=== PATIENT | male | born 1950 | race Caucasian/White ===

== ENCOUNTER 2021-10-10 15:18 | Outpatient (REF) | payer BC, SELFPAY ==
--- NOTE | 2021-10-10 14:30 | SKI_PTH ---
PATIENT: Jc Pierce LOC: [facility] U#:[id number] AGE/SX: 71/M ROOM: RE10/10/[address]: David Ratliff MD : 1950 BED: DIS: 10/10/2021 SPEC #: [id number] RECD: 10/10/21 18:35 STATUS: UBALDO CANTOR #: [id number] YAHAIRA: 10/10/21 14:[address]: David Ratliff DEPT: Surgical Specimen RECD BY: Joselyn Mckeon ENTERED: 10/10/21 18:36 SP TYPE: MEENAKSHI CALHOUN DR: Giancarlo De La Paz Tissues: 1 - SKIN BIOPSY(SHAVE/PUNCH) Procedures: GROSS AND MICRO LEVEL 4 IMMUNOPEROXIDASE STAIN SPECIAL STAIN 1 Comments: [id number]
== END 2021-10-10 15:19 | disposition home or self-care (01) ==
LOC: LBN 15:18
PROVIDERS: PCP Family Medicine; Visit Provider Otolaryngology
DX: J32.9 Chronic sinusitis, unspecified (principal)
CPT/HCPCS: 88305; 88312; 88361

== ENCOUNTER 2022-02-10 01:46 | Outpatient (CLI) | payer BC, SELFPAY ==
[2022-02-10] MEDS: Methacholine 100 MG VIAL IH (17:29)
[2022-02-10] MEDS: Inhaler, Assist Device 1 EACH MC (17:29)
[2022-02-10] MEDS: Albuterol HFA 18 GM 200 PUFF INH IH (17:29)
--- NOTE | 2022-02-21 09:17 | PFT_ITS ---
Date of service: 02/10/22 Time of Service: 15:05 Pulmonary Function Test Result Requesting Provider [place] Indications: DANIELS Interpretation Spirometry: There is no airflow limitation. There is a reduced FVC. There is no significant bronchodilator response. Lung Volumes: Normal lung volumes Diffusion Capacity: Normal diffusion Airway Pressure: Normal resistance Impression Normal pulmonary function testing. The decreased FVC is likely pseudo- restriction from obesity. Clinical Correlation therefore is recommended.
--- NOTE | 2022-02-22 07:03 | W.PFT ---
Date of service: 02/10/22 Time of Service: 15:05 Pulmonary Function Test Result Requesting Provider Jennifer Indications: Dyspnea Interpretation Spirometry: There is a 6% decreased in FEV1% with administration of 16mg/mL methacholine. Impression Negative methacholine challenge Clinical Correlation therefore is recommended.
== END 2022-02-10 01:47 | disposition home or self-care (01) ==
LOC: RT 01:46
PROVIDERS: PCP Family Medicine; Visit Provider Student in an Organized Health Care Education/Training Program
DX: R06.09 Other forms of dyspnea (principal)
CPT/HCPCS: 94060; 94070; 94726; 94729; 94010; J7674

== ENCOUNTER 2022-09-11 14:48 | Outpatient (REF) | payer BC, SELFPAY ==
[2022-09-11 13:54] LABS: Abs Immature Grans 0.01 10^3/uL (0.0-0.06); Absolute Basophil Count 0.04 10^3/uL (0.0-0.2); Absolute Eosinophil Count 0.34 10^3/uL (0.0-0.7); Absolute Lymphocyte Count 1.93 10^3/uL (1.2-3.4); Absolute Monocyte Count 0.69 10^3/uL (0.1-0.8); Absolute Neutrophil Count 1.73 10^3/uL (1.2-6.7); Basophils % 0.8; Eosinophils % 7.2; HCT 38.6 % (40.0-50.0); Immature Grans % 0.2; Lymphocytes % 40.7; MCHC 33.7 % (32.0-36.0); MCV 92 fL (80-95); MPV 9.8 fL (8.0-11.0); Monocytes % 14.6; Neutrophils % 36.5; Platelet Count 248 10^3/uL (130-400); RDW-SD 54.4 fL; WBC 4.74 10^3/uL (4.4-10.8)
[2022-09-11 14:28] LABS: ALT 33 U/L (16-63); AST 15 U/L (15-37); Albumin 3.5 g/dL (3.4-5.0); Alkaline Phosphatase 76 U/L (46-116); Anion Gap 9.6 mmol/L (3-11); BUN 14 mg/dL (7-18); Bilirubin, Total 0.5 mg/dL (0.2-1.0); CO2 26.4 mmol/L (21.0-32.0); CREATININE 0.9 mg/dL (0.70-1.30); Calcium 8.8 mg/dL (8.5-10.1); Chloride 103 mmol/L (98-107); Estimated GFR 91.88 (mL/min/1.73m2); FREE T4 1.04 ng/dL (0.76-1.46); Glucose 92 mg/dL (74-106); Potassium 4.1 mmol/L (3.5-5.1); Sodium 139 mmol/L (136-145); Total Protein 7.4 g/dL (6.4-8.2); Vitamin B12 344 pg/mL (193-986)
[2022-09-11 14:43] LABS: Vitamin D 25 Total 24.7 ng/mL (30-100)
[2022-09-11 14:47] LABS: NT-proBNP 212 pg/mL (<300)
== END 2022-09-11 14:49 | disposition home or self-care (01) ==
LOC: LBN 14:48
PROVIDERS: PCP Family Medicine; Visit Provider Physician Assistant Surgical
DX: R06.00 Dyspnea, unspecified (principal)
CPT/HCPCS: 80053; 82306; 82607; 83880; 84439; 84443; 85025

== ENCOUNTER 2022-10-12 18:37 | Outpatient (REF) | payer BC, SELFPAY ==
[2022-10-12 22:27] LABS: Rheumatoid Factor <8.6 IU/mL (<12.0)
[2022-10-13 09:01] LABS: Cyclic Citrullinated Peptide <2.5 U/mL (<5.0)
[2022-10-13 14:17] LABS: ANA Interpretation Negative (Negative)
[2022-10-15 12:57] LABS: Fungitell Qualitative Negative (Negative); Fungitell Quantitative Value <31 pg/mL (<60 pg/mL)
[2022-10-15 15:58] LABS: Blastomyces Ag Result Not Detected; Blastomyces Ag Value Not Detected
== END 2022-10-12 18:38 | disposition home or self-care (01) ==
LOC: LBN 18:37
PROVIDERS: PCP Family Medicine; Visit Provider Student in an Organized Health Care Education/Training Program
DX: R91.8 Other nonspecific abnormal finding of lung field (principal); J68.3 Other acute and subacute respiratory conditions due to chemicals, gases, fumes and vapors; G47.33 Obstructive sleep apnea (adult) (pediatric); J45.909 Unspecified asthma, uncomplicated
CPT/HCPCS: 86200; 87449; 86038; 86431; 87385

== ENCOUNTER 2022-10-16 05:54 | Day surgery (SDC) | payer BC, SELFPAY ==
[2022-10-16] VITALS (9 sets, daily range): BP systolic 110–134; BP diastolic 45–70; PULSE 53–56; RESP 1–22; TEMP 36.2–36.6; O2SAT 90–95; BMI 44.4
[2022-10-16] MEDS: Lactated Ringers 1,000 ML 80 ML IV (07:10)
--- NOTE | 2022-10-16 07:22 | W.ANESPRE ---
General Info Date of Service Date Performed: 10/16/22 Height: 5 ft 7 in Weight: 128.508 kg Body Mass Index (BMI): 44.4 Surgical Procedure: Operation Date: 10/16/22 07:40 Proposed Procedure Side Surgeon p flexible Bronchoscopy w/BAL Lorie Rodriguez MD Actual Procedure Side Surgeon p Flexible Bronchoscopy w/BAL Not Applicable Lorie Rodriguez MD Pre-Op Diagnosis Post-Op Diagnosis Non-resolving pulmonary infiltrates + dyspnea Non-resolving pulmonary infiltrates + dyspnea Meds Allergies and Home Medications Allergies Allergy/AdvReac Type Severity Reaction Status Date / Time enalapril Allergy Verified 10/16/22 06:23 Penicillins Allergy Verified 10/16/22 06:23 Home Medication Medication Instructions Recorded ProAir HFA 90 mcg/actuation 2 puff inhalation Q4H PRN 07/27/14 aerosol inhaler (albuterol sulfate) Wellbutrin XL 150 mg 24 hr tablet, 150 mg PO DAILY 07/27/14 extended release (bupropion HCl) Wellbutrin XL 300 mg 24 hr tablet, 300 mg PO DAILY 07/27/14 extended release (bupropion HCl) lovastatin 40 mg tablet 40 mg PO DAILY 07/27/14 montelukast 10 mg tablet 10 mg PO DAILY 07/27/14 amlodipine 5 mg tablet 10 mg PO DAILY 04/16/15 acetaminophen 650 mg 650 mg PO Q8H PRN 11/10/20 tablet,extended release eplerenone 50 mg tablet 50 mg PO BID 11/10/20 fluticasone propionate 230 2 puff inhalation BID 11/10/20 mcg-salmeterol 21 mcg/actuation HFA inhaler (Advair HFA) gabapentin 800 mg tablet 800 mg PO QHS 11/10/20 losartan 100 mg tablet 100 mg PO DAILY 11/10/20 adalimumab 40 mg/0.8 mL See Rx Instructions subcut .COMPLEX 11/16/20 subcutaneous pen kit (Humira Pen) aspirin 325 mg tablet 325 mg PO DAILY 11/16/20 pantoprazole 40 mg tablet,delayed 40 mg PO DAILY 08/23/21 release tamsulosin 0.4 mg capsule 0.4 mg PO DAILY 08/23/21 clonidine 0.3 mg/24 hr weekly 1 patch transdermal QWEEK 09/05/21 transdermal patch Daily Vitamin (multivitamin) 1 tab PO DAILY 01/31/22 Flonase Allergy Relief 50 2 spray NS DIRECTED PRN 01/31/22 mcg/actuation nasal spray,suspension (fluticasone propionate) ascorbic acid (vitamin C) 1,000 mg 1,000 mg PO QAM 01/31/22 tablet calcium carbonate 600 mg calcium 600 mg PO DAILY 01/31/22 (1,500 mg) tablet (Calcium) furosemide 20 mg PO BID 01/31/22 garlic 1,000 mg PO DAILY 01/31/22 magnesium hydroxide 400 mg (170 mg 400 mg PO DAILY 01/31/22 magnesium) chewable tablet minoxidil 10 mg tablet 40 mg PO DAILY 01/31/22 potassium chloride 20 mEq 40 meq PO DAILY 01/31/22 tablet,extended release(part/cryst) loratadine 10 mg tablet (Allergy 10 mg PO DAILY 08/03/22 Relief (loratadine)) albuterol sulfate 1.25 mg/3 mL 1.25 mg (3 mL) inhalation QID PRN 10/02/22 solution for nebulization shortness of breath or wheezing #90 mL Current Visit Medications: Current Medications Generic Name Dose Route Start Last Admin Trade Name Freq PRN Reason Stop Dose Admin Albuterol/Ipratropium 3 ml 10/16/22 06:54 Albuterol/Ipratropium 3 Ml Upd Vial UPD 11/15/22 06:53 Q2H PRN PRN Ringer's Solution 1,000 mls @ 80 mls/hr 10/16/22 06:00 10/16/22 07:10 IV 10/16/22 23:59 80 mls/hr INFUSION SERA Administration IV Miscellaneous Supplies 1 each 10/16/22 06:00 Iv Access IV 10/16/22 23:59 DIRECTED SERA Sodium Chloride 0 ml 10/16/22 06:00 Normal Saline Flush 10 Ml Syr IV 10/16/22 23:59 PRN PRN Sodium Chloride 0 ml 10/16/22 06:00 Normal Saline 10 Ml Vial IJ 10/16/22 23:59 DIRECTED PRN Sterile Water 0 ml 10/16/22 06:00 Water,Injection,Sterile 10 Ml Vial IJ 10/16/22 23:59 DIRECTED PRN PFSH Active Problems Active Problems: Problem Status Onset Code Hypertension I10 Crohn's disease K50.90 Nasal polyps J33.9 Spinal stenosis M48.00 Pneumonia J18.9 Eustachian tube dysfunction H69.80 Mononucleosis B27.90 Hemorrhoids K64.9 Rosacea L71.9 Warts B07.9 CTS (carpal tunnel syndrome) G56.00 Diverticulitis K57.92 C. difficile colitis A04.72 Obstructive sleep apnea G47.33 Tinnitus H93.19 Hx of epistaxis Z87.898 History of arthroplasty of both shoulders Z98.890 Hx of umbilical hernia repair Z98.890, Z87.19 Hx of vasectomy Z98.52 Hx of total knee replacement Z96.659 Hx of foot surgery Z98.890 Hx of colonoscopy Z98.890 History of partial colectomy Z90.49 Hx of spinal surgery Z98.890 Hx of sinus surgery Z98.890 History of hip replacement Z96.649 History of nasal polyp Z87.09 Urinary urgency R39.15 Restless legs syndrome G25.[address] of chest R93.89 Visual changes H53.9 Wrist pain M25.539 Dyspnea R06.00 Ventricular bigeminy I49.8 Varicose veins of lower extremity I83.90 Macrocytosis D75.89 Knee pain M25.569 Hip pain M25.559 Essential hypertension I10 Edema R60.9 Fatigue R53.83 Obesity E66.9 Nasal vestibulitis J34.89 Nasal septum ulceration J34.0 Abnormal chest x-ray R93.89 Pulmonary infiltrates R91.8 Reactive airways dysfunction syndrome J68.3 Medical History Medical History Adjustment disorder with depressed mood Asthma COVID-19 vaccine administered #1 06/05/2020, #2 07/03/2020 Essential hypertension Hx of fracture of foot Metal plate in situ Hyperlipidemia Psoriasis Surgical History Surgical History Repair of umbilical hernia laparoscopic with Mesh Replacement of total knee joint right shoulder replacement Bilateral, left Vasectomy Tobacco Smoking/Tobacco Use Status: Former Tobacco Use Alcohol Alcohol Intake: current Alcohol intake frequency: 0-2 drinks per day Alcohol type: beer Substance Use Substance use: Never Substance use type: does not use Details: alcohol: t-1: some beers Vital Signs and Lab Results Vital Signs Most Recent Vital Signs in EMR: Most Recent Vital Signs Temp Pulse Resp BP Pulse Ox 36.6 C 55 L 18 134/67 95 10/16/22 06:40 10/16/22 06:40 10/16/22 06:40 10/16/22 06:40 10/16/22 06:40 Lab Results Blood Type / Crossmatch: No Data to Display Complete Blood Count: No Data to Display Complete Metabolic Panel: No Data to Display Liver Function Panel: No Data to Display Coagulation Panel: No Data to Display Cardiac Panel: No Data to Display Arterial Blood Gas: No Data to Display Venous Blood Gas: No Data to Display Pancreas Panel: No Data to Display Thyroid Panel: No Data to Display Infectious Disease: No Data to Display Blood Cultures: No Data to Display Toxicology Panel: No Data to Display Anesthesia Assessment and Plan Anesthesia History Personal History: No History of Anesthesia Complications Family History: No Family History of Anesthesia Complications Exercise Tolerance Exercise Tolerance: Metabolic Equivalents<4 Pertinent Negatives Pertinent Negatives: No Symptoms of GERD Cardiac & Pulmonary Exam Cardiac Exam: Normal S1/S2 Heart Sounds Pulmonary Exam: Clear Bilateral Breath Sounds Implantable Cardiac Device Does patient have a Pacemaker or an ICD?: No Airway Exam Known Difficult Airway: No Mallampati Class: 2 Mouth Opening: Normal (> 3cm) Thyromental Distance: Greater than 3 cm Neck Range of Motion: Full ROM Neck Circumference: Normal Teeth Condition: Normal Dentition ASA Classification ASA Score: ASA 2 Emergency Case?: No NPO Status NPO Status: NPO Clears >2 hours, Solids >8 hours Anesthesia Plan Resuscitation Status: Full Code Anesthesia Technique: General Anesthesia Airway Planned: Endotracheal Tube Monitors Used: Standard Monitors
[2022-10-16] MEDS: Lidocaine 1% Pres-Free 5 ML VIAL (08:00)
--- NOTE | 2022-10-16 08:10 | PAPNONF_PTH ---
PATIENT: Jc Pierce LOC: [facility] U#:[id number] AGE/SX: 72/M ROOM: RE10/16/[address]: Lorie Rodriguez MD : 1950 BED: DIS: 10/16/2022 SPEC #: [id number] RECD: 10/16/22 12:47 STATUS: UBALDO REQ #: [id number] YAHAIRA: 10/16/22 08:[address]: Lorie Rodriguez DEPT: [facility] [place] Cytology RECD BY: Joselyn Mckeon ENTERED: 10/16/22 12:48 SP TYPE: PAPWAI CALHOUN DR: Giancarlo De La Paz Tissues: 1 - BODY FLUID CYTO(NOT S/U/N/EM)[facility] Procedures: BODY FLUID CYTO(NOT SPU/UR/NIP/ENDOM)[facility] SPECIAL STAIN 1 Comments: [id number] (TV = 30 ml, SENT FRESH) (REFRIGERATED)
--- NOTE | 2022-10-16 08:52 | W.ANESPOSTOP ---
Postoperative Evaluation Date, Time and Location Date Performed: 10/16/22 Time Performed: 08:52 Patient Location: PACU Vital Signs Most Recent Imported Vital Signs: Most Recent Vital Signs Temp Pulse Resp BP Pulse Ox 36.6 C 55 L 22 116/51 L 95 10/16/22 08:48 10/16/22 08:48 10/16/22 08:48 10/16/22 08:48 10/16/22 08:48 Pain Score Most Recent Pain Score: Most Recent Pain Score Pain Level 0 10/16/22 08:48 Assessment Mental Status: Awake (Alert & Oriented to Patient Baseline) Airway and Respiratory Function: Patent airway with normal (patient baseline) respiratory exam Cardiovascular Function: Hemodynamically Stable Hydration Status: Adequately Hydrated Nausea & Vomiting: No Nausea or Vomiting Pain: Pt. Denies Any Pain Peripheral Nerve Block: Patient did not receive a nerve block
--- NOTE | 2022-10-16 08:55 | W.PM.OP ---
Date of service: 10/16/22 Time of Service: 07:50 Operative Note Operative Note PRE-OP DIAGNOSIS: Abnormal chest CT Refer to Anesthesia Record Findings: Procedure Description: Bronchoscopy Indication:Abnormal chest CT Procedure performed: Flexible bronchoscopy with BAL Sedation plan: General anesthesia Informed consent was obtained after the risks and benefits or the procedure were discussed. A proper and complete OR compliant time out was performed. The therapeutic 6.2mm Olympus bronchoscope was inserted into the airways, where 3cc in total of 1% topical lidocaine was used the anesthetize the airways. The trachea was midline and without lesion or injury. The mucosa appeared normal and there were no signs of tracheomalacia. The bella was sharp. All bronchial subsegments were visualized within each lobe and showed normal appearing mucosa with no secretions. The right middle lobes did have irritation with minimal blood present. A bronchoalveolar lavage was performed in the RML. A total of 180cc of saline was administered with a return of 75cc. The fluid was pink with visible cellularity.Given the pink appearance a total of 3 subsequent alloquotes were performed. The second alloquote was more bloody than the first but the third alloquote was no bloodied than the second (see picture above). Negative for diffuse alveolar hemorrhage. The bronchoscope was then removed and the case terminated. The patient was taken to PACU in stable condition. Samples collected:RML BAL, bronchial washings Testing ordered:cell diff, viral panel, cytopathology with silver stain, bacterial, fungal, AFB stain and cultures. Complications:None Lorie Rodriguez MD Pulmonary & Critical Care Medicine
[2022-10-16] MEDS: Albuterol/Ipratropium 3 ML UPD VIAL UPD (09:30)
[2022-10-18 08:01] LABS: Gram Smear Result Neutrophils Present
[2022-10-18 09:06] LABS: Lymphocytes Fluid Relative 61 %; Mono/Macrophage Fluid Relative 37 %; Neutrophils Fluid Relative 1 %
[2022-10-18 09:07] LABS: Eosinophils Fluid Relative 1 %
[2022-10-18 13:37] LABS: Adenovirus DNA Result Negative (Negative); Metapneumovirus RNA Result Negative (Negative); Parainfluenza Type1 RNA Result Negative (Negative); Parainfluenza Type2 RNA Result Negative (Negative); Parainfluenza Type3 RNA Result Negative (Negative); Parainfluenza Type4 RNA Result Negative (Negative); Rhinovirus RNA Result Negative (Negative)
[2022-11-14 15:03] LABS: Fungus Smear No Fungi Seen
[2022-11-14 15:05] LABS: Fungus Smear No Fungi Seen
== END 2022-10-16 09:52 | disposition home or self-care (01) ==
PROVIDERS: PCP Family Medicine; Visit Provider Student in an Organized Health Care Education/Training Program
PROC: 0BJ08ZZ Inspection of Tracheobronchial Tree, Via Natural or Artificial Opening Endoscopic (ICD-10-PCS; CPT 31622; principal; 2022-10-16 07:30)
DX: R91.8 Other nonspecific abnormal finding of lung field (principal); J45.909 Unspecified asthma, uncomplicated; G47.33 Obstructive sleep apnea (adult) (pediatric); Z79.899 Other long term (current) drug therapy
CPT/HCPCS: 31624; 80162; 87070; 87102; 87107; 87116; 87205; 87206; 87632; 88104; 88312; 94640; J1100; J1885; J2001; J2405; J2704; J7620

== ENCOUNTER 2022-12-04 09:39 | Day surgery (SDC) | payer BC, SELFPAY ==
[2022-12-04] VITALS (9 sets, daily range): BP systolic 123–135; BP diastolic 61–78; PULSE 66–84; RESP 18–21; TEMP 36.3–37.1; O2SAT 93–97; BMI 43.4
[2022-12-04] MEDS: Lactated Ringers 1,000 ML 80 ML IV (10:51)
--- NOTE | 2022-12-04 11:05 | W.ANESPRE ---
General Info Date of Service Date Performed: 12/04/22 Height: 5 ft 7 in Weight: 125.8 kg Body Mass Index (BMI): 43.4 Surgical Procedure: Operation Date: 12/04/22 11:40 Proposed Procedure Side Surgeon p Bronchoscopy w/BAL, Transbronchial Biopsies Lorie Rodriguez MD Actual Procedure Side Surgeon p Bronchoscopy w/BAL, Transbronchial Biopsies Lorie Rodriguez MD Meds Allergies and Home Medications Allergies Allergy/AdvReac Type Severity Reaction Status Date / Time enalapril Allergy Anaphylaxis Verified 12/04/22 10:10 Penicillins Allergy unknown Verified 12/04/22 10:10 Home Medication Medication Instructions Recorded ProAir HFA 90 mcg/actuation 2 puff inhalation Q4H PRN 07/27/14 aerosol inhaler (albuterol sulfate) Wellbutrin XL 150 mg 24 hr tablet, 150 mg PO DAILY 07/27/14 extended release (bupropion HCl) Wellbutrin XL 300 mg 24 hr tablet, 300 mg PO DAILY 07/27/14 extended release (bupropion HCl) lovastatin 40 mg tablet 40 mg PO DAILY 07/27/14 montelukast 10 mg tablet 10 mg PO DAILY 07/27/14 amlodipine 5 mg tablet 10 mg PO DAILY 04/16/15 acetaminophen 650 mg 650 mg PO Q8H PRN 11/10/20 tablet,extended release eplerenone 50 mg tablet 50 mg PO BID 11/10/20 fluticasone propionate 230 2 puff inhalation BID 11/10/20 mcg-salmeterol 21 mcg/actuation HFA inhaler (Advair HFA) gabapentin 800 mg tablet 800 mg PO QHS 11/10/20 losartan 100 mg tablet 100 mg PO DAILY 11/10/20 adalimumab 40 mg/0.8 mL See Rx Instructions subcut .COMPLEX 11/16/20 subcutaneous pen kit (Humira Pen) aspirin 325 mg tablet 325 mg PO DAILY 11/16/20 pantoprazole 40 mg tablet,delayed 40 mg PO DAILY 08/23/21 release tamsulosin 0.4 mg capsule 0.4 mg PO DAILY 08/23/21 clonidine 0.3 mg/24 hr weekly 1 patch transdermal QWEEK 09/05/21 transdermal patch Daily Vitamin (multivitamin) 1 tab PO DAILY 01/31/22 Flonase Allergy Relief 50 2 spray NS DIRECTED PRN 01/31/22 mcg/actuation nasal spray,suspension (fluticasone propionate) ascorbic acid (vitamin C) 1,000 mg 1,000 mg PO QAM 01/31/22 tablet calcium carbonate 600 mg calcium 600 mg PO DAILY 01/31/22 (1,500 mg) tablet (Calcium) furosemide 20 mg PO BID 01/31/22 garlic 1,000 mg PO DAILY 01/31/22 magnesium hydroxide 400 mg (170 mg 400 mg PO DAILY 01/31/22 magnesium) chewable tablet minoxidil 10 mg tablet 40 mg PO DAILY 01/31/22 potassium chloride 20 mEq 40 meq PO DAILY 01/31/22 tablet,extended release(part/cryst) loratadine 10 mg tablet (Allergy 10 mg PO DAILY 08/03/22 Relief (loratadine)) albuterol sulfate 1.25 mg/3 mL 1.25 mg (3 mL) inhalation QID PRN 10/02/22 solution for nebulization shortness of breath or wheezing #90 mL sulfamethoxazole 800 1 tab PO DAILY #60 tabs 10/20/22 mg-trimethoprim 160 mg tablet (Bactrim DS) Current Visit Medications: Current Medications Generic Name Dose Route Start Last Admin Trade Name Freq PRN Reason Stop Dose Admin Ringer's Solution 1,000 mls @ 80 mls/hr 12/04/22 06:00 12/04/22 10:51 IV 12/31/22 23:59 80 mls/hr INFUSION SERA Administration IV Miscellaneous Supplies 1 each 12/04/22 06:00 Iv Access IV 12/31/22 23:59 DIRECTED SERA Sodium Chloride 0 ml 12/04/22 06:00 Normal Saline Flush 10 Ml Syr IV 12/31/22 23:59 PRN PRN Sodium Chloride 0 ml 12/04/22 06:00 Normal Saline 10 Ml Vial IJ 12/31/22 23:59 DIRECTED PRN Sterile Water 0 ml 12/04/22 06:00 Water,Injection,Sterile 10 Ml Vial IJ 12/31/22 23:59 DIRECTED PRN PFSH Active Problems Active Problems: Problem Status Onset Code Hypertension I10 Crohn's disease K50.90 Nasal polyps J33.9 Spinal stenosis M48.00 Pneumonia J18.9 Eustachian tube dysfunction H69.80 Mononucleosis B27.90 Hemorrhoids K64.9 Rosacea L71.9 Warts B07.9 CTS (carpal tunnel syndrome) G56.00 Diverticulitis K57.92 C. difficile colitis A04.72 Obstructive sleep apnea G47.33 Tinnitus H93.19 Hx of epistaxis Z87.898 History of arthroplasty of both shoulders Z98.890 Hx of umbilical hernia repair Z98.890, Z87.19 Hx of vasectomy Z98.52 Hx of total knee replacement Z96.659 Hx of foot surgery Z98.890 Hx of colonoscopy Z98.890 History of partial colectomy Z90.49 Hx of spinal surgery Z98.890 Hx of sinus surgery Z98.890 History of hip replacement Z96.649 History of nasal polyp Z87.09 Urinary urgency R39.15 Restless legs syndrome G25.[address] of chest R93.89 Visual changes H53.9 Wrist pain M25.539 Dyspnea R06.00 Ventricular bigeminy I49.8 Varicose veins of lower extremity I83.90 Macrocytosis D75.89 Knee pain M25.569 Hip pain M25.559 Essential hypertension I10 Edema R60.9 Fatigue R53.83 Obesity E66.9 Nasal vestibulitis J34.89 Nasal septum ulceration J34.0 Abnormal chest x-ray R93.89 Pulmonary infiltrates R91.8 Reactive airways dysfunction syndrome J68.3 Fungal pneumonia J16.8, B49 Medical History Medical History Adjustment disorder with depressed mood Asthma COVID-19 vaccine administered #1 06/05/2020, #2 07/03/2020 Essential hypertension Hx of fracture of foot Metal plate in situ Hyperlipidemia Psoriasis Surgical History Surgical History History of left hip replacement Repair of umbilical hernia laparoscopic with Mesh Replacement of total knee joint right shoulder replacement Bilateral, left Vasectomy Tobacco Smoking/Tobacco Use Status: Former Tobacco Use Alcohol Alcohol Intake: current Alcohol intake frequency: 0-2 drinks per day Alcohol type: beer Substance Use Substance use: Never Substance use type: does not use Vital Signs and Lab Results Vital Signs Most Recent Vital Signs in EMR: Most Recent Vital Signs Temp Pulse Resp BP Pulse Ox 37.1 C 84 20 135/63 94 12/04/22 09:45 12/04/22 09:45 12/04/22 09:45 12/04/22 09:45 12/04/22 09:45 Lab Results Blood Type / Crossmatch: No Data to Display Complete Blood Count: No Data to Display Complete Metabolic Panel: No Data to Display Liver Function Panel: No Data to Display Coagulation Panel: No Data to Display Cardiac Panel: No Data to Display Arterial Blood Gas: No Data to Display Venous Blood Gas: No Data to Display Pancreas Panel: No Data to Display Thyroid Panel: No Data to Display Infectious Disease: No Data to Display Blood Cultures: No Data to Display Toxicology Panel: No Data to Display Imaging and Studies Imaging and Studies Study information below may be from another EMR and interpreted by another provider. Please see original notes in EMR for more complete details. Pulmonary Function Summary: 02/22/2022: Pulmonary Function Test Result Requesting Provider Jennifer Indications: Dyspnea Interpretation Spirometry: There is a 6% decreased in FEV1% with administration of 16mg/mL methacholine. Impression Negative methacholine challenge Clinical Correlation therefore is recommended. Anesthesia Assessment and Plan Anesthesia History Personal History: No History of Anesthesia Complications Family History: No Family History of Anesthesia Complications Exercise Tolerance Exercise Tolerance: Metabolic Equivalents<4 Pertinent Negatives Pertinent Negatives: No Symptoms of GERD, No Major Cardiovascular Symptoms or Complaints and No Major Pulmonary Symptoms or Complaints Cardiac & Pulmonary Exam Cardiac Exam: Normal S1/S2 Heart Sounds Pulmonary Exam: Clear Bilateral Breath Sounds Implantable Cardiac Device Does patient have a Pacemaker or an ICD?: No Airway Exam Known Difficult Airway: No Mallampati Class: 2 Mouth Opening: Normal (> 3cm) Thyromental Distance: Greater than 3 cm Neck Range of Motion: Full ROM Neck Circumference: Normal Teeth Condition: Normal Dentition ASA Classification ASA Score: ASA 3 Emergency Case?: No NPO Status NPO Status: NPO Clears >2 hours, Solids >8 hours Anesthesia Plan Resuscitation Status: Full Code Anesthesia Technique: General Anesthesia Airway Planned: Endotracheal Tube Monitors Used: Standard Monitors
--- NOTE | 2022-12-04 11:37 | HPE_ITS ---
Assessment and Plan Assessment and plan (1) Fungal pneumonia: Status: Acute Assessment and plan: No changes. Repeat bronchoscopy to confirm/refute fungal pneumonia. Safe to proceed. History of Present Illness Narrative: Jc is presenting today for flexible bronchoscopy. No change in symptoms since our last encounter. Review of Systems All systems reviewed & are unremarkable except as noted in HPI and below PFSH All Active Problems Hypertension (Chronic) Crohn's disease (Chronic) Nasal polyps (Acute) Spinal stenosis (Acute) Pneumonia (Acute) Eustachian tube dysfunction (Acute) Mononucleosis (Acute) Hemorrhoids (Acute) Rosacea (Acute) Warts (Acute) CTS (carpal tunnel syndrome) (Acute) Diverticulitis (Chronic) C. difficile colitis (Acute) Obstructive sleep apnea (Chronic) Tinnitus (Acute) Hx of epistaxis (Acute) History of arthroplasty of both shoulders (Acute) Hx of umbilical hernia repair (Acute) Hx of vasectomy (Acute) Hx of total knee replacement (Acute) Hx of foot surgery (Acute) Hx of colonoscopy (Chronic) History of partial colectomy (Acute) Hx of spinal surgery (Acute) Hx of sinus surgery (Acute) History of hip replacement (Chronic) History of nasal polyp (Acute) Urinary urgency (Acute) Restless legs syndrome (Acute) Abnormal screening CT of chest (Acute) Visual changes (Acute) Wrist pain (Acute) Dyspnea (Acute) Ventricular bigeminy (Acute) Varicose veins of lower extremity (Acute) Macrocytosis (Acute) Knee pain (Acute) Hip pain (Acute) Essential hypertension (Acute) Edema (Acute) Fatigue (Acute) Obesity (Chronic) Nasal vestibulitis (Acute) Nasal septum ulceration (Acute) Abnormal chest x-ray (Acute) Pulmonary infiltrates (Acute) Reactive airways dysfunction syndrome (Acute) Fungal pneumonia (Acute) Medical History Adjustment disorder with depressed mood Asthma COVID-19 vaccine administered #1 06/05/2020, #2 07/03/2020 Essential hypertension Hx of fracture of foot Metal plate in situ Hyperlipidemia Psoriasis Surgical History History of left hip replacement Repair of umbilical hernia laparoscopic with Mesh Replacement of total knee joint right shoulder replacement Bilateral, left Vasectomy Family History Father Hypertension Heart disease Myocardial infarct CAD (coronary artery disease) COPD (chronic obstructive pulmonary disease) Mother Heart disease Hypertension CHF (congestive heart failure) COPD (chronic obstructive pulmonary disease) Brother Diabetes CHF (congestive heart failure) Essential hypertension Hypertension Heart disease heart attack - brother age 78 Maternal Grandfather Cancer lung Maternal Grandmother Cancer kidney Social History Smoking/Tobacco Use Status: Former Tobacco Use tobacco type: cigarettes Quit Date: 03/26/05 Smoking risk assessment performed?: Yes Alcohol Intake: current Alcohol Intake frequency: 0-2 drinks per day Alcohol type: beer Drug use: Never Substance use type: does not use Household members: spouse and children Housing: house current occupation: worked at [employer] What is your relationship status?: Panel score (0-1 are the most socially isolated patients): 1 Additional Social history: unable to assess privately Meds Allergies and Home Medications Allergies Allergy/AdvReac Type Severity Reaction Status Date / Time enalapril Allergy Anaphylaxis Verified 12/04/22 10:10 Penicillins Allergy unknown Verified 12/04/22 10:10 Home Medications Medication Instructions Recorded Confirmed Type ProAir HFA 90 mcg/actuation 2 puff inhalation Q4H PRN 07/27/14 12/04/22 History aerosol inhaler (albuterol sulfate) Wellbutrin XL 150 mg 24 hr tablet, 150 mg PO DAILY 07/27/14 12/04/22 History extended release (bupropion HCl) Wellbutrin XL 300 mg 24 hr tablet, 300 mg PO DAILY 07/27/14 12/04/22 History extended release (bupropion HCl) lovastatin 40 mg tablet 40 mg PO DAILY 07/27/14 12/04/22 History montelukast 10 mg tablet 10 mg PO DAILY 07/27/14 12/04/22 History amlodipine 5 mg tablet 10 mg PO DAILY 04/16/15 12/04/22 History acetaminophen 650 mg 650 mg PO Q8H PRN 11/10/20 12/04/22 History tablet,extended release eplerenone 50 mg tablet 50 mg PO BID 11/10/20 12/04/22 History fluticasone propionate 230 2 puff inhalation BID 11/10/20 12/04/22 History mcg-salmeterol 21 mcg/actuation HFA inhaler (Advair HFA) gabapentin 800 mg tablet 800 mg PO QHS 11/10/20 12/04/22 History losartan 100 mg tablet 100 mg PO DAILY 11/10/20 12/04/22 History adalimumab 40 mg/0.8 mL See Rx Instructions subcut .COMPLEX 11/16/20 12/01/22 History subcutaneous pen kit (Humira Pen) aspirin 325 mg tablet 325 mg PO DAILY 11/16/20 12/04/22 History pantoprazole 40 mg tablet,delayed 40 mg PO DAILY 08/23/21 12/04/22 History release tamsulosin 0.4 mg capsule 0.4 mg PO DAILY 08/23/21 12/04/22 History clonidine 0.3 mg/24 hr weekly 1 patch transdermal QWEEK 09/05/21 12/04/22 History transdermal patch Daily Vitamin (multivitamin) 1 tab PO DAILY 01/31/22 12/04/22 History Flonase Allergy Relief 50 2 spray NS DIRECTED PRN 01/31/22 12/04/22 History mcg/actuation nasal spray,suspension (fluticasone propionate) ascorbic acid (vitamin C) 1,000 mg 1,000 mg PO QAM 01/31/22 12/04/22 History tablet calcium carbonate 600 mg calcium 600 mg PO DAILY 01/31/22 12/04/22 History (1,500 mg) tablet (Calcium) furosemide 20 mg PO BID 01/31/22 12/04/22 History garlic 1,000 mg PO DAILY 01/31/22 12/04/22 History magnesium hydroxide 400 mg (170 mg 400 mg PO DAILY 01/31/22 12/04/22 History magnesium) chewable tablet minoxidil 10 mg tablet 40 mg PO DAILY 01/31/22 12/04/22 History potassium chloride 20 mEq 40 meq PO DAILY 01/31/22 12/04/22 History tablet,extended release(part/cryst) loratadine 10 mg tablet (Allergy 10 mg PO DAILY 08/03/22 12/04/22 History Relief (loratadine)) albuterol sulfate 1.25 mg/3 mL 1.25 mg (3 mL) inhalation QID PRN 10/02/22 12/01/22 Rx solution for nebulization shortness of breath or wheezing #90 mL sulfamethoxazole 800 1 tab PO DAILY #60 tabs 10/20/22 10/20/22 Rx mg-trimethoprim 160 mg tablet (Bactrim DS) Exam Narrative Exam Narrative: Gen:?NAD, normal respiratory effort, obese HENT:?PERRL, nasal turbinates normal without erythema or inflammation, moist oral? mucosa, Mallampati 2, No LAD or JVD Chest:?No respiratory distress, normal appearance of chest, clear to auscultation bilaterally, no crackles or wheezes, normal inspiratory effort Heart:?regular rate and rhythym, no murmurs, rubs or gallops Abdomen:?Non-distended, soft, non tender Extremities:?No clubbing, + edema with compression stockings on, no cyanosis, no rashes Neuro:?AAOx3 , non focal Psych:?cooperative, appropriate mental affect Results Last Vital Signs Temp 37.1 C 12/04/22 09:45 Pulse 84 12/04/22 09:45 Resp 20 12/04/22 09:45 BP 135/63 12/04/22 09:45 Pulse Ox 94 12/04/22 09:45
--- NOTE | 2022-12-04 12:00 | PAPNONF_PTH ---
PATIENT: Jc Pierce LOC: [facility] U#:[id number] AGE/SX: 72/M ROOM: RE12/04/[address]: Lorie Rodriguez MD : 1950 BED: DIS: 12/04/2022 SPEC #: [id number] RECD: 12/04/22 13:36 STATUS: UBALDO REQ #: [id number] YAHAIRA: 12/04/22 12:[address]: Lorie Rodriguez DEPT: [facility] Cytology RECD BY: Joselyn Mckeon ENTERED: 12/04/22 13:37 SP TYPE: PAPSTEFFENF LJ DR: Giancarlo De La Paz Tissues: 1 - BODY FLUID CYTO(NOT S/U/N/EM)[facility] Procedures: BODY FLUID CYTO(NOT SPU/UR/NIP/ENDOM)[facility] SPECIAL STAIN 1 Comments: [id number] (TOTAL VOLUME = 10 ml, SENT FRESH) (REFRIGERATED)
--- NOTE | 2022-12-04 13:16 | W.PM.OP ---
Date of service: 12/04/22 Time of Service: 12:00 Operative Note Operative Note Refer to Anesthesia Record Procedure Description: Bronchoscopy Indication:Fungal pneumonia Procedure performed: Flexible bronchoscopy with BAL Sedation plan: General Informed consent was obtained after the risks and benefits or the procedure were discussed. The patient was sedated and intubated by anesthesia. A proper and complete OR compliant time out was performed. The therapeutic 6.2mm Olympus bronchoscope was inserted through the endotracheal tube and into the airways, where 3cc in total of 1% topical lidocaine was used the anesthetize the airways. The trachea was midline and without lesion or injury. The mucosa appeared normal and there were no signs of tracheomalacia. The bella was sharp. All bronchial subsegments were visualized within each lobe and showed normal airways mucosa with trace to no secretions. A bronchoalveolar lavage was performed in the RML. A total of 120cc of saline was administered with a return of 40 cc. The fluid was slightly cloudy in appearance. The bronchoscope was then removed and the case terminated. The patient was taken to PACU in stable condition. Samples collected:RML BAL, bronchial washings Testing ordered: cell diff, bacterial, fungal, afb cultures, cytopathology Complications:None Lorie Rodriguez MD [facility]monary [facility]
--- NOTE | 2022-12-04 13:31 | W.ANESPOSTOP ---
Postoperative Evaluation Date, Time and Location Date Performed: 12/04/22 Time Performed: 13:31 Patient Location: Day Surgery Unit Vital Signs Most Recent Imported Vital Signs: Most Recent Vital Signs Temp Pulse Resp BP Pulse Ox 36.4 C L 72 18 129/72 93 12/04/22 13:03 12/04/22 13:03 12/04/22 13:03 12/04/22 13:03 12/04/22 13:03 Pain Score Most Recent Pain Score: Most Recent Pain Score Pain Level 0 12/04/22 13:03 Assessment Mental Status: Awake (Alert & Oriented to Patient Baseline) Airway and Respiratory Function: Patent airway with normal (patient baseline) respiratory exam Cardiovascular Function: Hemodynamically Stable Hydration Status: Adequately Hydrated Nausea & Vomiting: No Nausea or Vomiting Pain: Pt. Denies Any Pain Peripheral Nerve Block: Patient did not receive a nerve block
[2022-12-05 08:28] LABS: Lymphocytes Fluid Relative 57 %; Mono/Macrophage Fluid Relative 30 %; Neutrophils Fluid Relative 13 %
[2022-12-06 08:15] LABS: Gram Smear Result Neutrophils Present
[2022-12-06 10:39] LABS: Myeloperoxidase Ab IgG <0.2 U; Proteinase 3 Ab (PR3) <0.2 U
[2023-01-01 10:37] LABS: Fungus Smear No Fungi Seen
[2023-01-01 10:38] LABS: Fungus Smear No Fungi Seen
== END 2022-12-04 14:15 | disposition home or self-care (01) ==
PROVIDERS: PCP Family Medicine; Visit Provider Student in an Organized Health Care Education/Training Program
PROC: 0BJ08ZZ Inspection of Tracheobronchial Tree, Via Natural or Artificial Opening Endoscopic (ICD-10-PCS; CPT 31622; principal; 2022-12-04 11:30)
DX: J16.8 Pneumonia due to other specified infectious organisms (principal); B48.8 Other specified mycoses; Z79.899 Other long term (current) drug therapy
CPT/HCPCS: 31624; 36415; 80162; 87070; 87102; 87116; 87205; 87206; 83516; 88104; 88312; J1100; J2001; J2405; J2704; J3010

== ENCOUNTER 2023-01-26 04:17 | Outpatient (CLI) | payer BC, SELFPAY ==
[2023-01-26] MEDS: Levalbuterol HFA 15 GM INH 4 PUFF IH (11:29)
[2023-01-26] MEDS: Inhaler, Assist Device 1 EACH MC (11:30)
--- NOTE | 2023-01-29 15:59 | W.PFT ---
Date of service: 01/26/23 Time of Service: 10:02 Pulmonary Function Test Result Indications: ILD Interpretation Spirometry: There is no airflow limitation. No significant bronchodilator response. Lung Volumes: Normal lung volumes Diffusion Capacity: Normal diffusion Airway Pressure: Normal airways resistance Impression Normal pulmonary function testing. Note: Compared to 1 year ago, the total lung volume has improved. The remainder of pulmonary function remains stable. Clinical Correlation therefore is recommended.
== END 2023-01-26 04:18 | disposition home or self-care (01) ==
LOC: RT 04:17
PROVIDERS: PCP Family Medicine; Visit Provider Student in an Organized Health Care Education/Training Program
DX: J84.9 Interstitial pulmonary disease, unspecified
CPT/HCPCS: 94060; 94726; 94729

== ENCOUNTER → 2023-04-03 13:32 | Outpatient (BNVA) | payer MEDICARE, BC, SELFPAY | PROVIDERS: PCP Family Medicine; Referring Provider Family Medicine; Visit Provider Physician Assistant Surgical | DX: J84.89 Other specified interstitial pulmonary diseases (principal); J68.3 Other acute and subacute respiratory conditions due to chemicals, gases, fumes and vapors; G47.33 Obstructive sleep apnea (adult) (pediatric) | CPT/HCPCS: 94618; 99215 ==

== ENCOUNTER 2023-04-25 13:30 | Outpatient (RCR) | payer MEDICARE, BC, SELFPAY | END 2023-04-25 23:59 | disposition home or self-care (01) | LOC: PRC 13:30 | PROVIDERS: PCP Family Medicine; Referring Provider Student in an Organized Health Care Education/Training Program; Visit Provider Student in an Organized Health Care Education/Training Program | DX: G47.33 Obstructive sleep apnea (adult) (pediatric) (principal) | CPT/HCPCS: 94626 ==

== ENCOUNTER → 2023-05-09 14:45 | Outpatient (BNVA) | payer MEDICARE, BC, SELFPAY | PROVIDERS: PCP Family Medicine; Referring Provider Family Medicine; Visit Provider Physician Assistant Surgical | DX: J84.9 Interstitial pulmonary disease, unspecified (principal); J81.1 Chronic pulmonary edema | CPT/HCPCS: 99214 ==

== ENCOUNTER 2023-05-21 14:00 | Outpatient (RCR) | payer MEDICARE, BC, SELFPAY | END 2023-05-24 23:59 | disposition home or self-care (01) | LOC: PRC 14:00 | PROVIDERS: PCP Family Medicine; Referring Provider Student in an Organized Health Care Education/Training Program; Visit Provider Student in an Organized Health Care Education/Training Program | DX: J84.9 Interstitial pulmonary disease, unspecified (principal) | CPT/HCPCS: 94626 ==

== ENCOUNTER → 2023-05-24 11:04 | Outpatient (BNVA) | payer MEDICARE, BC, SELFPAY | PROVIDERS: PCP Family Medicine; Referring Provider Family Medicine; Visit Provider Physician Assistant Surgical | DX: J68.3 Other acute and subacute respiratory conditions due to chemicals, gases, fumes and vapors (principal); G47.33 Obstructive sleep apnea (adult) (pediatric); J84.89 Other specified interstitial pulmonary diseases | CPT/HCPCS: 99214 ==

== ENCOUNTER 2023-06-22 14:00 | Outpatient (RCR) | payer MEDICARE, BC, SELFPAY | END 2023-06-24 23:59 | disposition home or self-care (01) | LOC: PRC 14:00 | PROVIDERS: PCP Family Medicine; Referring Provider Student in an Organized Health Care Education/Training Program; Visit Provider Student in an Organized Health Care Education/Training Program | DX: J84.9 Interstitial pulmonary disease, unspecified (principal) | CPT/HCPCS: 94626 ==

== ENCOUNTER 2023-06-27 14:00 | Outpatient (RCR) | payer MEDICARE, BC, SELFPAY ==
--- NOTE | 2023-06-26 15:56 | W.PFT ---
Date of service: 06/25/23 Time of Service: 14:02 Pulmonary Function Test Result Indications: Pulmonary Rehab Interpretation Spirometry: There is restrictive spirometry Impression Restrictive spirometry Clinical Correlation therefore is recommended.
== END 2023-07-24 23:59 | disposition home or self-care (01) ==
LOC: PRC 14:00
PROVIDERS: PCP Family Medicine; Referring Provider Student in an Organized Health Care Education/Training Program; Visit Provider Student in an Organized Health Care Education/Training Program
DX: J68.3 Other acute and subacute respiratory conditions due to chemicals, gases, fumes and vapors (principal); J84.89 Other specified interstitial pulmonary diseases; G47.33 Obstructive sleep apnea (adult) (pediatric)
CPT/HCPCS: 94626

== ENCOUNTER → 2023-08-24 13:34 | Outpatient (BNVA) | payer MEDICARE, BC, SELFPAY | PROVIDERS: PCP Family Medicine; Referring Provider Family Medicine; Visit Provider Student in an Organized Health Care Education/Training Program | DX: J68.3 Other acute and subacute respiratory conditions due to chemicals, gases, fumes and vapors (principal); G47.33 Obstructive sleep apnea (adult) (pediatric); J84.89 Other specified interstitial pulmonary diseases | CPT/HCPCS: 99214 ==

== ENCOUNTER → 2024-02-25 12:36 | Outpatient (BNVA) | payer MEDICARE, BC, SELFPAY | PROVIDERS: PCP Family Medicine; Referring Provider Family Medicine; Visit Provider Physician Assistant Surgical | DX: J68.3 Other acute and subacute respiratory conditions due to chemicals, gases, fumes and vapors (principal); G47.33 Obstructive sleep apnea (adult) (pediatric); J84.89 Other specified interstitial pulmonary diseases | CPT/HCPCS: 99214 ==

== ENCOUNTER 2024-06-17 03:18 | Outpatient (CLI) | payer MEDICARE, BC, SELFPAY ==
[2024-06-17] MEDS: Levalbuterol HFA 15 GM INH 4 PUFF IH (14:39)
[2024-06-17] MEDS: Inhaler, Assist Device 1 EACH MC (14:39)
--- NOTE | 2024-06-24 16:02 | W.PFT ---
Date of service: 06/17/24 Time of Service: 13:17 Pulmonary Function Test Result Indications: ILD Interpretation Spirometry: There is no airflow limitation. There is restrictive spirometry. Lung Volumes: Normal lung volumes Diffusion Capacity: Normal diffusion Airway Pressure: Normal airways resistance Impression Restrictive spirometry may be due to increased BMI. Clinical Correlation therefore is recommended.
== END 2024-06-25 23:59 | disposition home or self-care (01) ==
LOC: RT 03:25
PROVIDERS: PCP Family Medicine; Visit Provider Physician Assistant Surgical
DX: J84.116 Cryptogenic organizing pneumonia (principal); J84.9 Interstitial pulmonary disease, unspecified
CPT/HCPCS: 94060; 94618; 94726; 94729

== ENCOUNTER → 2024-10-01 14:34 | Outpatient (BNVA) | payer MEDICARE, BC, SELFPAY | PROVIDERS: PCP Family Medicine; Referring Provider Family Medicine; Visit Provider Internal Medicine Pulmonary Disease | DX: J45.40 Moderate persistent asthma, uncomplicated (principal); R06.00 Dyspnea, unspecified; J84.89 Other specified interstitial pulmonary diseases; G47.33 Obstructive sleep apnea (adult) (pediatric); Z23 Encounter for immunization | CPT/HCPCS: 99215; 90471; 90684 ==

== ENCOUNTER → 2024-12-31 13:43 | Outpatient (BNVA) | payer MEDICARE, BC, SELFPAY | PROVIDERS: PCP Family Medicine; Referring Provider Family Medicine; Visit Provider Internal Medicine Pulmonary Disease | DX: J45.40 Moderate persistent asthma, uncomplicated (principal); J84.89 Other specified interstitial pulmonary diseases; G47.33 Obstructive sleep apnea (adult) (pediatric); Z87.891 Personal history of nicotine dependence; Z23 Encounter for immunization | CPT/HCPCS: 90471; 90653; 99214 ==